=== PATIENT | female | born 2000 ===

== ENCOUNTER 2021-05-06 09:15 | Outpatient (RCR) | payer BC ==
[2021-04-28 09:30] VITALS: BP 111/84
[2021-04-29 09:30] VITALS: BP 119/91
[2021-05-05 09:15] VITALS: BP 114/81
[2021-05-06 09:15] VITALS: BP 114/72
== END 2021-05-18 06:27 | disposition home or self-care (01) ==
LOC: SDC 09:15
PROVIDERS: ATTEND Surgery
DX: Z48.00 Encounter for change or removal of nonsurgical wound dressing (principal)
CPT/HCPCS: 99212